=== PATIENT | female | born 1990 ===

== ENCOUNTER 2017-04-15 09:34 | Day surgery (SDC) | payer BC ==
[~2017-04-15] VITALS: Ht 157.5 cm; Wt 67.9 kg
[2017-04-15 09:51] VITALS: Ht 157.5 cm; Wt 67.9 kg
[2017-04-15 10:08] VITALS: BP 125/70; PULSE 79; RESP 14
--- NOTE | 2017-04-15 10:41 | OPPN ---
Date/Time of Note Date/Time of Note DATE: 04/15/17 TIME: 10:38 Operative Report Preoperative Diagnosis rectal bleeding Postoperative Diagnosis internal hemorrhoids Operation/Procedure Performed colonoscopy Provider: JOHN PERERA MD Anesthesia Type: moderate sedation Estimated blood loss: none Transfusion Required: no Specimen: none Grafts/Implants: none Complications: no JOHN PERERA MD Apr 15, 2017 10:41
[2017-04-15] MEDS ORDERED: MIDAZOLAM 1 MG/ML 2 ML INJ ONE ×3 (10:45)
[2017-04-15] MEDS ORDERED: FENTAnyl 50 MCG/ML VIAL ONE (10:45)
[2017-04-15 11:00] VITALS: BP 104/58; PULSE 71; RESP 14
--- NOTE | 2017-04-15 11:28 | GILP ---
DATE OF PROCEDURE: 04/15/2017 PROCEDURE PERFORMED: Colonoscopy. SURGEON: Dr. Short. PREOPERATIVE DIAGNOSES: 1. Rectal bleeding. 2. Change in bowel habits. POSTOPERATIVE DIAGNOSES: 1. Colonoscopy all the way to the cecum. 2. Internal hemorrhoids. INDICATION: Ms. Nelly Gallego is a 27-year-old female patient who noticed a sudden change in the bowel habits associated with rectal bleeding. The patient was scheduled for colonoscopy for further evaluation. The procedure and possible complications were well explained to the patient. She understood and consented to the procedure. DESCRIPTION OF PROCEDURE: Under the influence of fentanyl and Versed, the colonoscope was carefully introduced in the rectum, and under direct vision, it was advanced all the way to the cecum. FINDINGS: The patient had internal hemorrhoids. No colitis or neoplasm were identified. She tolerated the procedure very well. There was no complication from the procedure. At the end of procedure, she was awake with stable vital signs and she was discharged home in the care of her family. IMPRESSION: 1. Colonoscopy all the way to the cecum. 2. Internal hemorrhoids. PLAN: 1. Anusol HC 2.5 percent cream at bedtime. 2. High-fiber diet. Dictated By: MD HAYDER Curran/[email or web address] /Document#: [id number]
== END 2017-04-15 15:26 | disposition home or self-care (01) ==
LOC: GIL 09:34
PROVIDERS: ATTEND Internal Medicine Gastroenterology
DX: R19.4 Change in bowel habit (principal); K64.8 Other hemorrhoids
CPT/HCPCS: 45378; 84703; J2250; J3010; Z7610